=== PATIENT | female | born 1945 | race Caucasian/White ===

== ENCOUNTER 2024-11-07 14:15 | Observation (INO) | payer MEDICARE ==
[2024-11-07 14:55] LABS: Basophils % (A) 0 %; Eosinophils # (A) 0.2 k/uL (0-0.7); Eosinophils % (A) 1 %; HCT 42.1 % (34.0-46.0); HGB 13.7 gm/dL (11.4-16.0); Lymphocytes # (A) 0.9 k/uL (1.0-4.8); Lymphocytes % (A) 6 %; MCHC 32.6 g/dL (31.0-37.0); MCV 101.1 fL (80.0-100.0); Mean Platelet Volume 7.5; Monocytes # (A) 0.8 k/uL (0-1.0); Monocytes % (A) 6 %; Neutrophils # (A) 12.2 k/uL (1.3-7.7); Neutrophils % (A) 86 %; Platelet Count 299 k/uL (150-450); RBC 4.17 m/uL (3.80-5.40); RDW 13.2 % (11.5-15.5); WBC 14.2 k/uL (3.8-10.6)
[2024-11-07 14:58] LABS: Glucose,Whole Blood 79 mg/dL (70-110)
[2024-11-07 15:13] LABS: ALT 14 U/L (4-34); AST 22 U/L (14-36); African American GFR (CKD) >90 (>60 ml/min/1.73 sqM); Albumin 3.9 g/dL (3.5-5.0); Alkaline Phosphatase 166 U/L (38-126); Anion Gap 2 mmol/L; Blood Urea Nitrogen 16 mg/dL (7-17); Calcium 8.8 mg/dL (8.4-10.2); Carbon Dioxide 26 mmol/L (22-30); Chloride 108 mmol/L (98-107); Glucose 100 mg/dL (74-99); Non-African American GFR(CKD) 86 (>60 ml/min/1.73 sqM); Potassium 3.4 mmol/L (3.5-5.1); Sodium 136 mmol/L (137-145); Total Bilirubin 1.3 mg/dL (0.2-1.3); Total Protein 6.3 g/dL (6.3-8.2)
[2024-11-07 15:25] LABS: Amphetamine Screen,Urine Not Detected (NotDetected); Barbiturate Screen,Urine Not Detected (NotDetected); Benzodiazepines Screen,Urine Not Detected (NotDetected); Cocaine Screen,Urine Not Detected (NotDetected); Methadone Screen, Urine Not Detected (NotDetected); Opiate Screen,Urine Not Detected (NotDetected); Oxycodone Screen, Urine Not Detected (NotDetected); Phencyclidine Screen,Urine Not Detected (NotDetected); Tricyclic Antidepressant,Urine Not Detected (NotDetected); Urn Cannabinoid Scrn Not Detected (NotDetected)
[2024-11-07 15:30] LABS: Appearance,Urine Cloudy (Clear); Bacteria,Urine Rare /hpf; Bilirubin,Urine Negative (Negative); Blood,Urine Negative (Negative); Color,Urine Colorless; Glucose,Urine (UA) Negative (Negative); Ketones,Urine Negative (Negative); Leukocyte Esterase,Urine Large (Negative); Mucus,Urine Rare /hpf; Nitrite,Urine Negative (Negative); Protein,Urine Negative (Negative); RBC,Urine 17 /hpf (0-5); Specific Gravity,Urine 1.011 (1.001-1.035); Squamous Epithelial Cell,Urine 21 /hpf (0-4); Urobilinogen,Urine <2.0 mg/dL (<2.0); WBC,Urine 33 /hpf (0-5)
--- NOTE | 2024-11-07 16:01 | XR ---
EXAMINATION TYPE: XR pelvis AP view DATE OF EXAM: 11/07/2024 3:55 PM COMPARISON: None CLINICAL INDICATION: Female, 79 years old with history of Fall; [facility] TECHNIQUE: XR pelvis AP view, examined in a single projection. FINDINGS/IMPRESSION: 1. Right superior and inferior pubic ramus fracture. The femur appears intact. 2. Multilevel degeneration changes spine. The left hip is intact. The remainder of the pelvis appear s intact on radiography. [facility], Workstation: [facility], 11/07/2024 3:59 PM
--- NOTE | 2024-11-07 16:03 | XR ---
EXAMINATION TYPE: XR chest 2V DATE OF EXAM: 11/07/2024 3:55 PM COMPARISON: Chest radiographs from 11/07/2024 CLINICAL INDICATION: Female, 79 years old with history of altered mental status; [facility] TECHNIQUE: XR chest 2V Frontal and lateral views of the chest. FINDINGS: Lungs/Pleura: There is no evidence of pleural effusion, focal consolidation, or pneumothorax. Pulmonary vascularity: Unremarkable. Heart/mediastinum: Cardiomediastinal silhouette is unremarkable. Musculoskeletal: No acute osseous pathology. IMPRESSION: 1. No acute cardiopulmonary disease process. 2. COPD changes. [facility], Workstation: [facility], 11/07/2024 4:01 PM
[2024-11-07] MEDS: SODIUM CHLORIDE 0.9% 500 ML 500 ML IV ONE (16:05)
--- NOTE | 2024-11-07 16:10 | ED ---
General Adult HPI - General Chief complaint: Fall Stated complaint: Fall,hypertension Time Seen by Provider: 11/07/24 14:20 Source: patient, RN notes reviewed, old records reviewed, Caregiver Mode of arrival: EMS - History of Present Illness Initial comments: This is a 79-year-old female who lives alone and has dementia. Patient was found down by the neighbor and the patient states she knows she fell but she did not complain of any symptoms to me however she did complain earlier of some hip pain. Patient denies hitting her head there was no signs of trauma. Patient denies any neck pain. Patient has numbness weakness. Patient denies chest pain or back pain. Patient denies abdominal pain. Patient is unable to give any further history however no one is here to give any further history at this point in time. The next door neighbor eventually showed up and stated that the patient was altered mentally and she did complain of some right hip pain. - Related Data Home Medications Medication Instructions Recorded Confirmed Aspirin EC [Ecotrin Low Dose] 81 mg PO DAILY 11/07/24 11/07/24 Prevagen 1 tab PO DAILY 11/07/24 11/07/24 Allergies Allergy/AdvReac Type Severity Reaction Status Date / Time No Known Allergies Allergy Verified 11/07/24 18:32 Review of Systems ROS Statement: Those systems with pertinent positive or pertinent negative responses have been documented in the HPI. ROS Other: All systems not noted in ROS Statement are negative. Past Medical History Past Medical History: No Reported History Additional Past Medical History / Comment(s): heart murmur History of Any Multi-Drug Resistant Organisms: None Reported Additional Past Surgical History / Comment(s): exploratory abd sx Past Psychological History: No Psychological Hx Reported Smoking Status: Never smoker Past Alcohol Use History: None Reported Past Drug Use History: None Reported General Exam - General Exam Comments Initial Comments: GENERAL: Patient is well-developed and well-nourished. Patient is nontoxic and well- hydrated and is in no acute distress. ENT: Neck is soft and supple. No significant lymphadenopathy is noted. Oropharynx is clear. Moist mucous membranes. Neck has full range of motion without eliciting any pain. EYES: The sclera were anicteric and conjunctiva were pink and moist. Extraocular movements were intact and pupils were equal round and reactive to light. Eyelids were unremarkable. PULMONARY: Unlabored respirations. Good breath sounds bilaterally. No audible rales rhonchi or wheezing was noted. CARDIOVASCULAR: There is a regular rate and rhythm without any murmurs gallops or rubs. ABDOMEN: Soft and nontender with normal bowel sounds. SKIN: Skin is clear with no lesions or rashes and otherwise unremarkable. NEUROLOGIC: Patient is alert and oriented x 2. Cranial nerves II through XII are grossly intact. Motor and sensory are also intact. Normal speech, volume and content. Symmetrical smile. MUSCULOSKELETAL: Normal extremities with adequate strength and full range of motion. Patient has full range of motion of both hips and no point tenderness I palpated the spine and there was no tenderness LYMPHATICS: No significant lymphadenopathy is noted PSYCHIATRIC: Normal psychiatric evaluation. Course Vital Signs 11/07/24 11/07/24 11/07/24 14:15 16:27 18:35 Temperature 98.5 F Pulse Rate 91 113 H 96 Respiratory 18 18 18 Rate Blood Pressure 177/100 151/131 190/90 O2 Sat by Pulse 100 98 Oximetry 11/07/24 20:00 Temperature 98.1 F Pulse Rate 68 Respiratory 18 Rate Blood Pressure 150/84 O2 Sat by Pulse 98 Oximetry Medical Decision Making - Medical Decision Making EKG is interpreted by myself. EKG shows atrial fibrillation at 92 bpm QRS is 1 02 QT interval 3-5 QTc is 434. Patient's EKG shows no ST segment elevation Was pt. sent in by a medical professional or institution ([facility], [employer], urgent care, hospital, or retirement...) When possible be specific @ -No Did you speak to anyone other than the patient for history (EMS, parent, family, police, friend...)? What history was obtained from this source @ -No Did you review nursing and triage notes (agree or disagree)? Why? @ -I reviewed and agree with nursing and triage notes Were old charts reviewed (outside hosp., previous admission, EMS record, old EKG, old radiological studies, urgent care reports/EKG's, retirement records)? Report findings @ -No old charts were reviewed Differential Diagnosis? @ -Differential Altered Mental Status: Hypoglycemia, DKA, hypercapnia, ETOH, overdose, CO poisoning, trauma, myxedema coma, HTN encephalopathy, infection, encephalitis, psychosis, intercranial hemorrhage, hepatic encephalopathy, meningitis, CVA, this is not meant to be an all-inclusive list EKG interpreted by me (3pts min.). @ -As above X-rays interpreted by me (1pt min.). @ -X-ray of the pelvis shows a superior and inferior rami fracture with slight displacement CT interpreted by me (1pt min.). @ -CT of the brain and C-spine showed no acute abnormality. U/S interpreted by me (1pt. min.). @ -None done What testing was considered but not performed or refused? (CT, X-rays, U/S, labs)? Why? @ -None What meds were considered but not given or refused? Why? @ -None Did you discuss the management of the patient with other professionals (professionals i.e. , PA, [employer], lab, RT, psych nurse, sexual assault social worker, hi ranger operator, teacher, guest relation officer, clinical case manager)? Give summary @ -I spoke with Dr. Weldon and he agreed to admit the patient admit the patient wrote admitting orders Was smoking cessation discussed for >3mins.? @ -No Was critical care preformed (if so, how long)? @ -No Were there social determinants of health that impacted care today? How? (Homelessness, low income, unemployed, alcoholism, drug addiction, transportation, low edu. Level, literacy, decrease access to med. care, fdc, rehab)? @ -No Was there de-escalation of care discussed even if they declined (Discuss DNR or withdrawal of care, Hospice)? DNR status @ -No What co-morbidities impacted this encounter? (DM, HTN, Smoking, COPD, CAD, Cancer, CVA, ARF, Chemo, Hep., AIDS, mental health diagnosis, sleep apnea, morbid obesity)? @ -None Was patient admitted / discharged? Hospital course, mention meds given and route, prescriptions, significant lab abnormalities, going to OR and other pertinent info. @ -Patient has a rami fracture but she remains altered per the neighbor so patient will be admitted 23 hours to sound physicians Undiagnosed new problem with uncertain prognosis? @ -No Drug Therapy requiring intensive monitoring for toxicity (Heparin, Nitro, Insulin, Cardizem)? @ -No Were any procedures done? @ -No Diagnosis/symptom? @ -Altered mental status Acute, or Chronic, or Acute on Chronic? @ -Acute Uncomplicated (without systemic symptoms) or Complicated (systemic symptoms)? @ -Complicated Side effects of treatment? @ -No Exacerbation, Progression, or Severe Exacerbation? @ -No Poses a threat to life or bodily function? How? (Chest pain, [place], [place], pneumonia, PE, COPD, DKA, ARF, appy, cholecystitis, CVA, Diverticulitis, Homicidal, Suicidal, threat to staff... and all critical care pts) @ -No Diagnosis/symptom? @ -Rami fractures Acute, or Chronic, or Acute on Chronic? @ -Default Uncomplicated (without systemic symptoms) or Complicated (systemic symptoms)? @ -Acute uncomplicated Side effects of treatment? @ -None Exacerbation, Progression, or Severe Exacerbation] @ -No Poses a threat to life or bodily function? @ -No - Lab Data Result diagrams: 11/07/24 14:21 11/07/24 14:21 Lab Results 11/07/24 11/07/24 11/07/24 Range/Units 14:21 14:21 14:21 WBC 14.2 H (3.8-10.6) k/uL RBC 4.17 (3.80-5.40) m/uL Hgb 13.7 (11.4-16.0) gm/dL Hct 42.1 (34.0-46.0) % MCV 101.1 H (80.0-100.0) fL MCH 33.0 (25.0-35.0) pg MCHC 32.6 (31.0-37.0) g/dL RDW 13.2 (11.5-15.5) % Plt Count 299 (150-450) k/uL MPV 7.5 Neutrophils % 86 % Lymphocytes % 6 % Monocytes % 6 % Eosinophils % 1 % Basophils % 0 % Neutrophils # 12.2 H (1.3-7.7) k/uL Lymphocytes # 0.9 L (1.0-4.8) k/uL Monocytes # 0.8 (0-1.0) k/uL Eosinophils # 0.2 (0-0.7) k/uL Basophils # 0.0 (0-0.2) k/uL PT (10.0-12.5) sec INR (<1.2) APTT (22.0-30.0) sec Sodium 136 L (137-145) mmol/L Potassium 3.4 L (3.5-5.1) mmol/L Chloride 108 H (98-107) mmol/L Carbon Dioxide 26 (22-30) mmol/L Anion Gap 2 mmol/L BUN 16 (7-17) mg/dL Creatinine 0.66 (0.52-1.04) mg/dL Est GFR (CKD-EPI)AfAm >90 (>60 ml/min/1.73 sqM) Est GFR (CKD-EPI)NonAf 86 (>60 ml/min/1.73 sqM) Glucose 100 H (74-99) mg/dL POC Glucose (mg/dL) (70-110) mg/dL POC Glu [employer] ID Calcium 8.8 (8.4-10.2) mg/dL Total Bilirubin 1.3 (0.2-1.3) mg/dL AST 22 (14-36) U/L ALT 14 (4-34) U/L Alkaline Phosphatase 166 H (38-126) U/L Troponin I 0.015 (0.000-0.034) ng/mL Total Protein 6.3 (6.3-8.2) g/dL Albumin 3.9 (3.5-5.0) g/dL Urine Color Urine Appearance (Clear) Urine pH (5.0-8.0) Ur Specific [place] (1.001-1.035) Urine Protein (Negative) Urine Glucose (UA) (Negative) Urine Ketones (Negative) Urine Blood (Negative) Urine Nitrite (Negative) Urine Bilirubin (Negative) Urine Urobilinogen (<2.0) mg/dL Ur Leukocyte Esterase (Negative) Urine RBC (0-5) /hpf Urine WBC (0-5) /hpf Urine WBC Clumps (None) /hpf Ur Squamous Epith Cells (0-4) /hpf Urine Bacteria (None) /hpf Urine Mucus (None) /hpf Urine Opiates Screen (NotDetected) Ur Oxycodone Screen (NotDetected) Urine Methadone Screen (NotDetected) Ur Barbiturates Screen (NotDetected) U Tricyclic Antidepress (NotDetected) Ur Phencyclidine Scrn (NotDetected) Ur Amphetamines Screen (NotDetected) U Methamphetamines Scrn (NotDetected) U Benzodiazepines Scrn (NotDetected) Urine Cocaine Screen (NotDetected) U Marijuana (THC) Screen (NotDetected) 11/07/24 11/07/24 11/07/24 Range/Units 14:55 14:56 16:09 WBC (3.8-10.6) k/uL RBC (3.80-5.40) m/uL Hgb (11.4-16.0) gm/dL Hct (34.0-46.0) % MCV (80.0-100.0) fL MCH (25.0-35.0) pg MCHC (31.0-37.0) g/dL RDW (11.5-15.5) % Plt Count (150-450) k/uL MPV Neutrophils % % Lymphocytes % % Monocytes % % Eosinophils % % Basophils % % Neutrophils # (1.3-7.7) k/uL Lymphocytes # (1.0-4.8) k/uL Monocytes # (0-1.0) k/uL Eosinophils # (0-0.7) k/uL Basophils # (0-0.2) k/uL PT 10.5 (10.0-12.5) sec INR 0.9 (<1.2) APTT 21.9 L (22.0-30.0) sec Sodium (137-145) mmol/L Potassium (3.5-5.1) mmol/L Chloride (98-107) mmol/L Carbon Dioxide (22-30) mmol/L Anion Gap mmol/L BUN (7-17) mg/dL Creatinine (0.52-1.04) mg/dL Est GFR (CKD-EPI)AfAm (>60 ml/min/1.73 sqM) Est GFR (CKD-EPI)NonAf (>60 ml/min/1.73 sqM) Glucose (74-99) mg/dL POC Glucose (mg/dL) 79 (70-110) mg/dL POC Glu [employer] Operator ID Ybarra Florin Calcium (8.4-10.2) mg/dL Total Bilirubin (0.2-1.3) mg/dL AST (14-36) U/L ALT (4-34) U/L Alkaline Phosphatase (38-126) U/L Troponin I (0.000-0.034) ng/mL Total Protein (6.3-8.2) g/dL Albumin (3.5-5.0) g/dL Urine Color Colorless Urine Appearance Cloudy H (Clear) Urine pH 7.0 (5.0-8.0) Ur Specific [place] 1.011 (1.001-1.035) Urine Protein Negative (Negative) Urine Glucose (UA) Negative (Negative) Urine Ketones Negative (Negative) Urine Blood Negative (Negative) Urine Nitrite Negative (Negative) Urine Bilirubin Negative (Negative) Urine Urobilinogen <2.0 (<2.0) mg/dL Ur Leukocyte Esterase Large H (Negative) Urine RBC 17 H (0-5) /hpf Urine WBC 33 H (0-5) /hpf Urine WBC Clumps Few H (None) /hpf Ur Squamous Epith Cells 21 H (0-4) /hpf Urine Bacteria Rare H (None) /hpf Urine Mucus Rare H (None) /hpf Urine Opiates Screen Not Detected (NotDetected) Ur Oxycodone Screen Not Detected (NotDetected) Urine Methadone Screen Not Detected (NotDetected) Ur Barbiturates Screen Not Detected (NotDetected) U Tricyclic Antidepress Not Detected (NotDetected) Ur Phencyclidine Scrn Not Detected (NotDetected) Ur Amphetamines Screen Not Detected (NotDetected) U Methamphetamines Scrn Not Detected (NotDetected) U Benzodiazepines Scrn Not Detected (NotDetected) Urine Cocaine Screen Not Detected (NotDetected) U Marijuana (THC) Screen Not Detected (NotDetected) Disposition Clinical Impression: Fall, Pubic ramus fracture, Altered mental status, New onset a-fib Disposition: ADMITTED IP TO THIS [facility] Time of Disposition: 17:49
--- NOTE | 2024-11-07 16:11 | CT ---
EXAMINATION TYPE: CT brain cspine wo con DATE OF EXAM: 11/07/2024 4:03 PM COMPARISON: None. CLINICAL INDICATION: Female, 79 years old with history of Trauma; FELL/CONFUSED pain TECHNIQUE: Brain: Multiple axial CT images of the brain were obtained without IV contrast. Cspine: Axial CT images from the skull base to the inferior aspect of T2 we obtained without intraven ous contrast. Coronal and sagittal reformatted images were also reviewed. . CT DLP: 1167.2 mGycm, Automated exposure control for dose reduction was used. FINDINGS: Brain: Extra-axial spaces: No abnormal extra-axial fluid collections. Ventricular system: Dilatation in proportion to cerebral atrophy. Cerebral parenchyma: Cerebral atrophy. No acute intraparenchymal hemorrhage or mass effect. The hare -white junction is well differentiated. Scattered hypoattenuating areas are seen within the white mat ter. Cerebellum: Unremarkable. Mass effect: No evidence of midline shift. Intracranial vasculature: unremarkable Soft tissues: Normal. Calvarium/osseous structures: No depressed skull fracture. Paranasal sinuses and mastoid air cells: Clear. Visualized orbits: Bilateral aphakia Cervical spine: Fracture: None. Osseous structures: Multilevel degenerative disc disease changes with endplate spurring and disc oste ophyte complex's. Vertebral alignment: Within normal limits. Spinal canal/Neural Foramina: No evidence of significant spinal canal narrowing. No evidence for sign ificant neural foraminal stenosis. Neck soft tissues: Prevertebral soft tissues are within normal limits. Other: The airway is patent. The lung apices are clear. Atherosclerosis of the carotid bifurcations. IMPRESSION: 1. No acute intracranial process. 2. Nonspecific white matter changes, likely secondary to chronic small vessel ischemic disease. 3. No evidence of cervical spine fracture. 4. Moderate multilevel degenerative disc disease. [facility], Workstation: [facility], 11/07/2024 4:09 PM
[2024-11-07 16:39] LABS: INR 0.9 (<1.2); Partial Thromboplastin Time 21.9 sec (22.0-30.0); Prothrombin Time 10.5 sec (10.0-12.5)
[2024-11-07] MEDS: KETOROLAC 15 MG/ML 1 ML VIAL IVP STA (18:41)
[2024-11-07] MEDS: SODIUM CHLORIDE 0.9% 1,000 ML IV ONE (18:42)
[2024-11-07] MEDS: LABETALOL SYRINGE 5 MG/ML (4 ML SYR) IVP STA (18:42)
[2024-11-07] MEDS: POTASSIUM CHLORIDE 20 MEQ in WATER FOR INJECTION 1 100ML.BAG IVPB STA (22:08)
[2024-11-07] MEDS: POTASSIUM CHLORIDE ER 20 MEQ TAB.ER PO STA (22:20)
[2024-11-07] MEDS: hydrALAZINE HCL 20 MG/ML 1 ML VIAL IVP STA (23:32)
--- NOTE | 2024-11-08 00:24 | P.HPIM ---
History of Present Illness H&P Date: 11/07/24 Chief Complaint: Altered mental status Patient is a 79 year old female with no significant past medical history presented to the ED with altered mental status after a fall. She reports having a mechanical fall 2 weeks ago while getting groceries in her house. She didn't hit her head or lose consciousness. But she didn't get a medical evaluation at the time. Since then she has been able to ambulate with a walker. Yesterday she sustained another fall. She was found by her family on the floor. The patient didn't remember how she fell or if she hit her head or lost consciousness. Since the fall she has been complaining of bilateral hip pain. Family reports that the patient became very agitated and had altered mentation. Which is when she was brought into the ED. Upon presentation to the ED she wasn't oriented to person, place or time. At the time of this interview, her mentation had improved but is still agitated. She also reports slurring of speech. Denies headache, vision changes. She denies history of multiple falls. Denies having arrhythmias or past medical history of CVA/TIA. 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 She states her blood pressure is elevated sometimes but denies taking any antihypertensives. Denies fever, chills, chest pain, shortness of breath, cough, palpitations, abdominal pain, nausea, vomiting, hematuria, dysuria, hematochezia, melena, headache, vision changes, numbness, tingling. ED documentation reviewed. In the ED patient was treated with ketorolac 15 mg, labetalol 20 mg, 0.9 normal saline. Vitals on admission T 98.5 F, AK 91 bpm, RR 18, BP 177/100, O2 sat 100% on room air EKG independently interpreted as atrial fibrillation, poor R wave progression, rate 92 bpm, QTc 434 ms Chest x-ray shows no acute cardiopulmonary disease/process. COPD changes. Pelvis x-ray shows right superior and inferior pubic ramus fracture with femur appearing intact, multilevel degeneration changes of spine with the left hip intact and remainder of pelvis appears intact on radiography Head/cervical spine CT shows no acute intracranial process, nonspecific white matter changes likely secondary to chronic small vessel ischemic disease, no evidence of cervical spine fracture, moderate multilevel degenerative disc disease Labs on admission show WBC 14.2, sodium 136, potassium 3.4, ALP 166, APTT 21.9, troponin I 0.015 UA shows cloudy appearance, large leukocyte esterase, 17 RBC, 33 WBC, few WBC clumps, 21 squamous epithelial cells, rare bacteria and mucus Urine toxicology is negative Review of systems: Pertinent positives and negatives as discussed in HPI, a complete review of systems was performed and all other systems are negative. Social history: Tobacco: Current everyday smoker Alcohol: Occasional Recreational drugs: Denies use Physical examination: Vital signs reviewed General: nontoxic, no distress, appears at stated age, underweight Derm: warm, dry, intact Head: atraumatic, normocephalic, symmetric Eyes: EOMI, anicteric sclera Mouth: no lip lesion, mucus membranes moist Cardiovascular: S1 S2 reg, no murmur Lungs: CTA bilateral, no rhonchi, no rales, no accessory muscle use Abdominal: soft, non-tender to palpation Extremities: No cyanosis, clubbing, or pedal edema. B/l hip tender to palpation Neuro: Alert, Oriented, strength 5/5 of b/l UE, 5/5 of b/l LE distally, limited proximally due to pain from the fracture Psych: agitated Assessment/Plan: Patient is a 79 year old female with no significant past medical history presented to the ED with altered mental status after a fall. She has been admitted for right superior and inferior pubic ramus fracture. Active: #. Altered mental status, possibly secondary to concussion due to fall vs TIA, improving Head/cervical spine CT shows no acute intracranial process, nonspecific white matter changes likely secondary to chronic small vessel ischemic disease, no evidence of cervical spine fracture, moderate multilevel degenerative disc disease Urine toxicology is negative UA shows cloudy appearance, large leukocyte esterase, 17 RBC, 33 WBC, few WBC clumps, 21 squamous epithelial cells, rare bacteria and mucus Urine culture is pending Consult [employer]NAG[employer] #. Pelvic fracture, secondary to fall from standing height Pelvis x-ray shows right superior and inferior pubic ramus fracture with femur appearing intact, multilevel degeneration changes of spine with the left hip intact and remainder of pelvis appears intact on radiography Continue Ketorolac 15 mg IVP Q6HR PRN for pain management Obtain DEXA scan Calcium and Vitamin D supplementation Fall precautions Consult orthopedic surgery Consult PT and OT #. Atrial fibrillation, controlled ventricular rate, new onset Obtain echocardiogram Obtain TSH, lipid panel, A1c Consult cardiology #. Hypertension S/p Labetalol 20 mg and Hydralazine 10 mg in the ED Hydralazine 10 mg IVP Q6HR PRN for elevated blood pressure #. Hypokalemia Potassium chloride 20 meq IVPB once Monitor BMP #. Elevated alkaline phosphatase, secondary to fracture Monitor CMP F: 0.9 normal saline at 50 ml/hr E: Potassium replacement N: Regular diet A: DVT prophylaxis: Lovenox 40 mg SQ daily GI prophylaxis: Pantoprazole 40 mg IVP daily The patient is admitted with an anticipated less than 2 midnight stay for evaluation of altered mental status CODE STATUS: FULL CODE Discussed with: Patient and family Anticipated discharge place: Home Past Medical History Past Medical History: No Reported History Additional Past Medical History / Comment(s): heart murmur History of Any Multi-Drug Resistant Organisms: None Reported Additional Past Surgical History / Comment(s): exploratory abd sx Past Psychological History: No Psychological Hx Reported Smoking Status: Never smoker Past Alcohol Use History: None Reported Past Drug Use History: None Reported Medications and Allergies Home Medications Medication Instructions Recorded Confirmed Type Aspirin EC [Ecotrin Low Dose] 81 mg PO DAILY 11/07/24 11/07/24 History Prevagen 1 tab PO DAILY 11/07/24 11/07/24 History Allergies Allergy/AdvReac Type Severity Reaction Status Date / Time No Known Allergies Allergy Verified 11/07/24 18:32 Physical Exam Vitals: Vital Signs Temp Pulse Resp BP Pulse Ox 11/07/24 18:35 96 18 190/90 98 11/07/24 16:27 113 H 18 151/131 100 11/07/24 14:15 98.5 F 91 18 177/100 Intake and Output 11/07/24 11/07/24 11/07/24 06:59 14:59 22:59 Other: Weight 54.885 kg Results CBC & Chem 7: 11/07/24 14:21 11/07/24 14:21 Labs: Abnormal Lab Results - Last 24 Hours (Table) 11/07/24 11/07/24 11/07/24 Range/Units 14:21 14:21 14:55 WBC 14.2 H (3.8-10.6) k/uL MCV 101.1 H (80.0-100.0) fL Neutrophils # 12.2 H (1.3-7.7) k/uL Lymphocytes # 0.9 L (1.0-4.8) k/uL APTT (22.0-30.0) sec Sodium 136 L (137-145) mmol/L Potassium 3.4 L (3.5-5.1) mmol/L Chloride 108 H (98-107) mmol/L Glucose 100 H (74-99) mg/dL Alkaline Phosphatase 166 H (38-126) U/L Urine Appearance Cloudy H (Clear) Ur Leukocyte Esterase Large H (Negative) Urine RBC 17 H (0-5) /hpf Urine WBC 33 H (0-5) /hpf Urine WBC Clumps Few H (None) /hpf Ur Squamous Epith Cells 21 H (0-4) /hpf Urine Bacteria Rare H (None) /hpf Urine Mucus Rare H (None) /hpf 11/07/24 Range/Units 16:09 WBC (3.8-10.6) k/uL MCV (80.0-100.0) fL Neutrophils # (1.3-7.7) k/uL Lymphocytes # (1.0-4.8) k/uL APTT 21.9 L (22.0-30.0) sec Sodium (137-145) mmol/L Potassium (3.5-5.1) mmol/L Chloride (98-107) mmol/L Glucose (74-99) mg/dL Alkaline Phosphatase (38-126) U/L Urine Appearance (Clear) Ur Leukocyte Esterase (Negative) Urine RBC (0-5) /hpf Urine WBC (0-5) /hpf Urine WBC Clumps (None) /hpf Ur Squamous Epith Cells (0-4) /hpf Urine Bacteria (None) /hpf Urine Mucus (None) /hpf
[2024-11-08] MEDS: KETOROLAC 15 MG/ML 1 ML VIAL IVP SCH (00:26)
[2024-11-08] MEDS ORDERED: hydrALAZINE HCL 20 MG/ML 1 ML VIAL IVP PRN (01:07)
[2024-11-08 03:57] LABS: Chol/HDL Ratio 2.27 Ratio; LDL Cholesterol,Calculated 79.1 mg/dL (0.0-131.0); VLDL Calculation 11.62 mg/dL (5.00-40.00)
[2024-11-08 07:38] LABS: HCT 40.5 % (34.0-46.0); HGB 13.2 gm/dL (11.4-16.0); MCH 33.5 pg (25.0-35.0); MCHC 32.6 g/dL (31.0-37.0); Macrocytosis Slight; Mean Platelet Volume 7.7; Platelet Count 288 k/uL (150-450); RBC 3.93 m/uL (3.80-5.40); RDW 13.1 % (11.5-15.5); WBC 8.6 k/uL (3.8-10.6)
[2024-11-08] MEDS: CALCIUM CARB-VIT D 500 MG-5 MCG TAB PO SCH (07:46)
[2024-11-08 08:05] LABS: ALT 12 U/L (4-34); AST 23 U/L (14-36); African American GFR (CKD) >90 (>60 ml/min/1.73 sqM); Albumin 3.5 g/dL (3.5-5.0); Alkaline Phosphatase 143 U/L (38-126); Anion Gap 3 mmol/L; Blood Urea Nitrogen 15 mg/dL (7-17); Carbon Dioxide 30 mmol/L (22-30); Chloride 104 mmol/L (98-107); Glucose 93 mg/dL (74-99); Non-African American GFR(CKD) 85 (>60 ml/min/1.73 sqM); Potassium 4.6 mmol/L (3.5-5.1); Sodium 137 mmol/L (137-145); Total Bilirubin 1.1 mg/dL (0.2-1.3); Total Protein 5.8 g/dL (6.3-8.2)
[2024-11-08] MEDS: VALSARTAN 80 MG TAB PO SCH (08:50)
[2024-11-08] MEDS: PANTOPRAZOLE 40 MG/10 ML VIAL IVP SCH (08:50)
[2024-11-08] MEDS: APIXABAN 5 MG TAB PO SCH (08:50)
[2024-11-08] MEDS ORDERED: amLODIPine 10 MG TAB PO SCH (09:00)
[2024-11-08] MEDS ORDERED: ENOXAPARIN 40 MG/0.4 ML SYRINGE SQ SCH (09:00)
--- NOTE | 2024-11-08 09:05 | P.CRDCN ---
History of Present Illness History of present illness: HISTORY OF PRESENT ILLNESS: This is a 79-year-old female with no significant past medical history. 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 We have been asked to see the patient in co nsultation for new onset atrial fibrillation. Patient examined at the bedside in the emergency room. Patients family member is at the bedside. Patient apparently had a fall about 2 weeks. It is unknown if this was a mechanical fall or a syncopal episode. Apparently patient's friend came to check on her yesterday and she was found on the floor. She was conscious at the time but unknown for how long she laid on the floor. Apparently she has been having some issues with her balance recently per the family member. He also reports that she has had some issues with her speech at baseline and finding the right words but is not confused at baseline. The patient was found to be in A-fib with controlled ventricular rates. The patient denies a known history of atrial fibrillation. Additionally patient's blood pressures were found to be elevated with systolics between [id number]. DIAGNOSTICS: - EKG reveals atrial fibrillation with controlled ventricular rate - Chest xray negative for acute process. COPD changes. - Pelvis x-ray right superior and inferior pubic ramus fracture. Femur appears intact. - Laboratory data: WBC 14.2. Hemoglobin 13.7. Platelet count 299. Sodium 136. Potassium 3.4. BUN 16. Creatinine 0.66. Troponin negative x 1. TSH 2.710 - Current home cardiac medications include aspirin 81 mg daily - No previous echocardiogram, stress test, or cardiac catheterization available in EMR for review REVIEW OF SYSTEMS: At the time of my exam: CONSTITUTIONAL: Denies fever or chills. HEENT: Denies blurred vision, vision changes, or eye pain. Denies hemoptysis CARDIOVASCULAR: Denies chest pain. Denies orthopnea. Denies PND. Denies palpitations RESPIRATORY: Denies shortness of breath. GASTROINTESTINAL: Denies abdominal pain. Denies nausea or vomiting. HEMATOLOGIC: Denies bleeding disorders. GENITOURINARY: Denies any blood in urine. SKIN: Denies pruitis. Denies rash. PHYSICAL EXAM: VITAL SIGNS: Reviewed. GENERAL: Well-developed in no acute distress. HEENT: Head is normocephalic. Pupils are equal, round. Sclerae anicteric. Mucous membranes of the mouth are moist. Neck supple. No JVD or thyromegaly LUNGS: Respirations even and unlabored. Lungs essentially clear to auscultation bilaterally. HEART: Irregular rate and rhythm. S1 and S2 heard. ABDOMEN: Soft. Nondistended. Nontender. EXTREMITIES: Normal range of motion. No clubbing or cyanosis. Peripheral pulses intact. No lower extremity edema NEUROLOGIC: Awake and alert. ASSESSMENT: Status post fall x 2 Right superior and inferior pubic ramus fracture Atrial fibrillation with controlled ventricular rate, duration unknown Hypertensive urgency Altered mental status PLAN: Obtain 2D echo to assess cardiac structure and function TSH checked and within normal limits Begin Eliquis 5 mg twice a day Begin valsartan 80 mg twice a day for optimal blood pressure control Discontinue PRN IVP antihypertensive medications as this makes it difficult to determine appropriate oral regimen Obtain creatinine kinase level Further recommendations pending patient course Nurse practitioner note has been reviewed by physician. Signing provider agrees with the documented findings, assessment, and plan of care documented by DATA LIBRARIAN as a scribe. Past Medical History Past Medical History: No Reported History Additional Past Medical History / Comment(s): heart murmur History of Any Multi-Drug Resistant Organisms: None Reported Additional Past Surgical History / Comment(s): exploratory abd sx Past Psychological History: No Psychological Hx Reported Smoking Status: Never smoker Past Alcohol Use History: None Reported Past Drug Use History: None Reported Medications and Allergies Home Medications Medication Instructions Recorded Confirmed Type Aspirin EC [Ecotrin Low Dose] 81 mg PO DAILY 11/07/24 11/07/24 History Prevagen 1 tab PO DAILY 11/07/24 11/07/24 History Allergies Allergy/AdvReac Type Severity Reaction Status Date / Time No Known Allergies Allergy Verified 11/07/24 18:32 Physical Exam Vitals: Vital Signs Temp Pulse Resp BP Pulse Ox 11/08/24 05:17 98 F 71 16 178/88 100 11/08/24 02:00 76 18 148/99 98 11/08/24 00:00 84 18 139/94 97 11/07/24 22:00 65 18 160/88 97 11/07/24 20:00 98.1 F 68 18 150/84 98 11/07/24 18:35 96 18 190/90 98 11/07/24 16:27 113 H 18 151/131 100 11/07/24 14:15 98.5 F 91 18 177/100 Results 11/08/24 06:32 11/08/24 06:32 Cardiac Enzymes 11/07/24 11/07/24 Range/Units 14:21 14:21 AST 22 (14-36) U/L Troponin I 0.015 (0.000-0.034) ng/mL Coagulation 11/07/24 Range/Units 16:09 PT 10.5 (10.0-12.5) sec APTT 21.9 L (22.0-30.0) sec Lipids 11/07/24 Range/Units 14:21 Triglycerides 58.10 (0.00-149.00) mg/dL Cholesterol 162.00 (0.00-200.00) mg/dL HDL Cholesterol 71.30 H (40.00-60.00) mg/dL Cholesterol/HDL Ratio 2.27 Ratio CBC 11/07/24 Range/Units 14:21 WBC 14.2 H (3.8-10.6) k/uL RBC 4.17 (3.80-5.40) m/uL Hgb 13.7 (11.4-16.0) gm/dL Hct 42.1 (34.0-46.0) % Plt Count 299 (150-450) k/uL Comprehensive Metabolic Panel 11/07/24 Range/Units 14:21 Sodium 136 L (137-145) mmol/L Potassium 3.4 L (3.5-5.1) mmol/L Chloride 108 H (98-107) mmol/L Carbon Dioxide 26 (22-30) mmol/L BUN 16 (7-17) mg/dL Creatinine 0.66 (0.52-1.04) mg/dL Glucose 100 H (74-99) mg/dL Calcium 8.8 (8.4-10.2) mg/dL AST 22 (14-36) U/L ALT 14 (4-34) U/L Alkaline Phosphatase 166 H (38-126) U/L Total Protein 6.3 (6.3-8.2) g/dL Albumin 3.9 (3.5-5.0) g/dL Current Medications Generic Name Dose Route Start Last Admin Trade Name Freq PRN Reason Stop Dose Admin Calcium Carbonate 1 each 11/08/24 07:30 Calcium Carb-Vit D 500 Mg-5 Mcg Tab PO BID-W/MEALS MANJIT Enoxaparin Sodium 40 mg 11/08/24 09:00 Enoxaparin 40 Mg/0.4 Ml Syringe SQ DAILY MANJIT Hydralazine HCl 10 mg 11/08/24 01:07 Hydralazine Hcl 20 Mg/Ml 1 Ml Vial IVP Q6HR PRN Blood Pressure - High Sodium Chloride 1,000 mls @ 50 mls/hr 11/07/24 17:49 11/07/24 18:42 Saline 0.9% IV 11/08/24 13:48 50 mls/hr .Q20H ONE Administration Ketorolac Tromethamine 15 mg 11/08/24 00:00 11/08/24 00:26 Ketorolac 15 Mg/Ml 1 Ml Vial IVP 11/13/24 00:00 15 mg Q6HR MANJIT Administration Pantoprazole Sodium 40 mg 11/08/24 09:00 Pantoprazole 40 Mg/10 Ml Vial IVP DAILY MANJIT 11/07/24 14:21 11/07/24 14:21
--- NOTE | 2024-11-08 11:48 | P.PN ---
Subjective Progress Note Date: 11/08/24 Principal diagnosis: acute encephalopathy; right pelvic fracture d/t fall Patient is a 79 year old female with no significant past medical history presented to the ED with altered mental status after a fall. She reports having a mechanical fall 2 weeks ago while getting groceries in her house. She didn't hit her head or lose consciousness. But she didn't get a medical evaluation at the time. Since then she has been able to ambulate with a walker. Yesterday she sustained another fall. She was found by her family on the floor. The patient didn't remember how she fell or if she hit her head or lost consciousness. Since the fall she has been complaining of bilateral hip pain. Family reports that the patient became very agitated and had altered mentation. Which is when she was brought into the ED. Upon presentation to the ED she wasn't oriented to person, place or time. At the time of this interview, her mentation had improved but is still agitated. She also reports slurring of speech. Denies headache, vision changes. She denies history of multiple falls. Denies having arrhythmias or past medical history of CVA/TIA. 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 She states her blood pressure is elevated sometimes but denies taking any antihypertensives. Denies fever, chills, chest pain, shortness of breath, cough, palpitations, abdominal pain, nausea, vomiting, hematuria, dysuria, hematochezia, melena, headache, vision changes, numbness, tingling. 11/08/2024 patient seen and examined at bedside. Patient send mentation is improved per family at bedside. No new complaints. No acute events overnight. WBC 8.6 hemoglobin 13.2 MCV 103 sodium 137 potassium 4.6 bicarb 24 BUN 15 creatinine 0.68 glucose 93 calcium 9 TSH 2.7. Lipid panel shows elevated HDL at 71 LDL 79 cholesterol 162 A1c 5.5 Review of systems: Pertinent positives and negatives as discussed in HPI, a complete review of systems was performed and all other systems are negative. Physical examination: Vital signs reviewed General: nontoxic, no distress, appears at stated age, underweight Derm: warm, dry, intact Head: atraumatic, normocephalic, symmetric Eyes: EOMI, anicteric sclera Mouth: no lip lesion, mucus membranes moist Cardiovascular: S1 S2 reg, no murmur Lungs: CTA bilateral, no rhonchi, no rales, no accessory muscle use Abdominal: soft, non-tender to palpation Extremities: No cyanosis, clubbing, or pedal edema bilateral hip tender to palpation Neuro: Alert and Oriented x 3, strength 5/5 bilateral proximal and distal upper and lower extremities, range of motion limited due to pain from the fracture Psych: appropriate affect and mood Assessment/Plan: Patient is a 79 year old female with hypertension and being evaluated for acute metabolic encephalopathy and right superior and inferior pubic ramus fracture. Active: #. Acute encephalopathy, possibly secondary to concussion due to fall vs TIA vs delirium vs infectious vs metabolic, resolved Head/cervical spine CT shows no acute intracranial process, nonspecific white matter changes likely secondary to chronic small vessel ischemic disease, no evidence of cervical spine fracture, moderate multilevel degenerative disc disease Urine toxicology is negative UA shows cloudy appearance, large leukocyte esterase, 17 RBC, 33 WBC, few WBC clumps, 21 squamous epithelial cells, rare bacteria and mucus Urine culture is pending Consult R[employer] CUP FILLER #. Pelvic fracture, secondary to fall from standing height, suspected osteoporosis #. Elevated alkaline phosphatase, secondary to above Pelvis x-ray shows right superior and inferior pubic ramus fracture with femur appearing intact, multilevel degeneration changes of spine with the left hip intact and remainder of pelvis appears intact on radiography Continue Ketorolac 15 mg IVP Q6HR PRN for pain management Calcium and Vitamin D supplementation ALP 143 today Fall precautions Consult orthopedic surgery Consult PT and OT #. Atrial fibrillation, controlled ventricular rate, new onset Obtain echocardiogram Lipid panel shows elevated HDL at 71 LDL 79 cholesterol 162 A1c 5.5 Cardiology note reviewed, placed on Eliquis 5mg p.o. twice daily #. Hypertension S/p Labetalol 20 mg and Hydralazine 10 mg in the ED Valsartan 80 mg p.o. twice daily #. Hypokalemia, resolved Potassium chloride 20 meq IVPB once Potassium now at 4.6 F: 0.9 normal saline at 50 ml/hr E: Potassium replacement N: Regular diet A: fall precautions DVT prophylaxis: Lovenox 40 mg SQ daily GI prophylaxis: Pantoprazole 40 mg IVP daily Disposition: Pending clinical course I have seen and evaluated the patient today. Discussed with the resident and agree with the residents finding and plan as documented in the resident's note. Changes highlighted in blue font. Objective - Vital Signs Vital signs: Vital Signs Temp 98 F 11/08/24 05:17 Pulse 71 11/08/24 05:17 Resp 16 11/08/24 05:17 BP 178/88 11/08/24 05:17 Pulse Ox 100 11/08/24 05:17 FiO2 Intake & Output 11/07/24 11/08/24 11/08/24 18:59 06:59 18:59 Weight 54.885 kg - Labs CBC & Chem 7: 11/08/24 06:32 11/08/24 06:32 Labs: Abnormal Lab Results - Last 24 Hours (Table) 11/07/24 11/07/24 11/07/24 Range/Units 14:21 14:21 14:21 WBC 14.2 H (3.8-10.6) k/uL MCV 101.1 H (80.0-100.0) fL Neutrophils # 12.2 H (1.3-7.7) k/uL Lymphocytes # 0.9 L (1.0-4.8) k/uL APTT (22.0-30.0) sec Sodium 136 L (137-145) mmol/L Potassium 3.4 L (3.5-5.1) mmol/L Chloride 108 H (98-107) mmol/L Glucose 100 H (74-99) mg/dL Alkaline Phosphatase 166 H (38-126) U/L HDL Cholesterol 71.30 H (40.00-60.00) mg/dL Urine Appearance (Clear) Ur Leukocyte Esterase (Negative) Urine RBC (0-5) /hpf Urine WBC (0-5) /hpf Urine WBC Clumps (None) /hpf Ur Squamous Epith Cells (0-4) /hpf Urine Bacteria (None) /hpf Urine Mucus (None) /hpf 11/07/24 11/07/24 11/08/24 Range/Units 14:55 16:09 06:32 WBC (3.8-10.6) k/uL MCV 103.0 H (80.0-100.0) fL Neutrophils # (1.3-7.7) k/uL Lymphocytes # (1.0-4.8) k/uL APTT 21.9 L (22.0-30.0) sec Sodium (137-145) mmol/L Potassium (3.5-5.1) mmol/L Chloride (98-107) mmol/L Glucose (74-99) mg/dL Alkaline Phosphatase (38-126) U/L HDL Cholesterol (40.00-60.00) mg/dL Urine Appearance Cloudy H (Clear) Ur Leukocyte Esterase Large H (Negative) Urine RBC 17 H (0-5) /hpf Urine WBC 33 H (0-5) /hpf Urine WBC Clumps Few H (None) /hpf Ur Squamous Epith Cells 21 H (0-4) /hpf Urine Bacteria Rare H (None) /hpf Urine Mucus Rare H (None) /hpf
[2024-11-08] MEDS ORDERED: HYDROcodone/APAP 5-325MG 1 EACH TAB PO PRN (17:39)
--- NOTE | 2024-11-08 17:52 | P.CNOR ---
History of Present Illness - [facility] Consult date: 11/08/24 Consult reason: fracture History of present illness: Patient is a pleasant 79 yo female seen at bedside in ED this afternoon. Orthopedics was consulted regarding her right pubic ramii fractures. She lives alone and has dementia. Patient was found down by the neighbor and the patient states she knows she fell. She has had right hip/groin pain and difficulty ambulating. She is denying current numbness or calf pain. She has had difficulty with speech since her last January. She is denying any other complaints Review of Systems All systems: negative Past Medical History Past Medical History: No Reported History Additional Past Medical History / Comment(s): heart murmur History of Any Multi-Drug Resistant Organisms: None Reported Additional Past Surgical History / Comment(s): exploratory abd sx Past Psychological History: No Psychological Hx Reported Smoking Status: Never smoker Past Alcohol Use History: None Reported Past Drug Use History: None Reported Medications and Allergies Home Medications Medication Instructions Recorded Confirmed Type Aspirin EC [Ecotrin Low Dose] 81 mg PO DAILY 11/07/24 11/07/24 History Prevagen 1 tab PO DAILY 11/07/24 11/07/24 History Allergies Allergy/AdvReac Type Severity Reaction Status Date / Time No Known Allergies Allergy Verified 11/07/24 18:32 Physical Examination Inspection of right hip and lower extremity shows no wounds, erythema or echhymoses. There is no deformity. She has minimal to no pain with PROM of the right hip including flexion, IR, ER, Adduction and abduction. The femur, knee and lower leg are nontender and have no pain with ROM. Calf is SNT. Motor and sensation intact throughout right lower extremity. Pulse is 2+ at DP. Less than 2 sec cap refill in all digits Results - Labs Labs: Abnormal Lab Results - Last 24 Hours (Table) 11/07/24 11/08/24 11/08/24 Range/Units 14:21 06:32 06:32 MCV 103.0 H (80.0-100.0) fL Alkaline Phosphatase 143 H (38-126) U/L Total Protein 5.8 L (6.3-8.2) g/dL HDL Cholesterol 71.30 H (40.00-60.00) mg/dL H & H 11/07/24 11/08/24 Range/Units 14:21 06:32 Hgb 13.7 13.2 (11.4-16.0) gm/dL Hct 42.1 40.5 (34.0-46.0) % Coagulation 11/07/24 Range/Units 16:09 INR 0.9 (<1.2) Result Diagrams: 11/08/24 06:32 11/08/24 06:32 - Diagnostic results Hip x-ray: report reviewed, image reviewed (right superior and inferior pubic rami fractures) Assessment and Plan (1) Pubic ramus fracture Narrative/Plan: There are no plans for surgical intervention. Recommend partial weight bearing as tolerated with walker at all times, PT, pain management, and consultation for ECF placement. Will follow. Thank you Current Visit: Yes Status: Acute Priority: Medium Code(s): S32.599A - OTH FRACTURE OF UNSP PUBIS, INIT ENCNTR FOR CLOSED FRACTURE SNOMED Code(s): 5392659400 Time with Patient: Less than 30
[2024-11-08] MEDS: HYDROcodone/APAP 5-325MG 1 EACH TAB PO PRN (18:19)
[2024-11-08] MEDS: hydrOXYzine HCL 25 MG TAB PO PRN (19:01)
[2024-11-08] MEDS: cloNIDine HCL 0.2 MG TAB PO PRN (21:11)
[2024-11-08 22:08] LABS: Glucose,Whole Blood 109 mg/dL (70-110)
[2024-11-09 06:37] VITALS: TEMP 97.8
[2024-11-09 07:56] LABS: Basophils % (A) 0 %; Eosinophils # (A) 0.3 k/uL (0-0.7); Eosinophils % (A) 4 %; HGB 13.3 gm/dL (11.4-16.0); Lymphocytes % (A) 12 %; MCH 33.4 pg (25.0-35.0); MCHC 33.3 g/dL (31.0-37.0); MCV 100.4 fL (80.0-100.0); Mean Platelet Volume 7.7; Monocytes # (A) 0.5 k/uL (0-1.0); Monocytes % (A) 7 %; Neutrophils % (A) 76 %; Platelet Count 274 k/uL (150-450); RBC 3.98 m/uL (3.80-5.40); RDW 13.5 % (11.5-15.5); WBC 7.8 k/uL (3.8-10.6)
[2024-11-09 08:04] LABS: African American GFR (CKD) 89 (>60 ml/min/1.73 sqM); Anion Gap 2 mmol/L; Blood Urea Nitrogen 16 mg/dL (7-17); Carbon Dioxide 30 mmol/L (22-30); Chloride 103 mmol/L (98-107); Glucose 101 mg/dL (74-99); Non-African American GFR(CKD) 77 (>60 ml/min/1.73 sqM); Potassium 4.4 mmol/L (3.5-5.1); Sodium 135 mmol/L (137-145)
--- NOTE | 2024-11-09 10:17 | P.PN ---
Subjective Progress Note Date: 11/09/24 Principal diagnosis: Right pubic ramii fractures Patient is seen at bedside today sitting up comfortably in chair. We were consulted for her right pubic ramii fractures. She is improved overall today. She has been ambulating with walker. Her pain is controlled. She denies new com plaints including numbness or calf pain. Objective - Vital Signs Vital signs: Vital Signs Temp 97.8 F 11/09/24 03:47 Pulse 96 11/09/24 03:47 Resp 18 11/09/24 03:47 BP 148/89 11/09/24 03:47 Pulse Ox 98 11/09/24 03:47 FiO2 Intake & Output 11/08/24 11/09/24 11/09/24 18:59 06:59 18:59 Intake Total 100 Balance 100 Weight 55 kg Intake: Oral 100 Other: Voiding Method External Catheter # Voids 450 - Exam No change in exam. She has minimal to no pain with AROM of both hips and lower extremities. Motor and sensation is intact throughout bilateral LE. Calves are SNT. distal pulses are 2+ and less than 2 sec cap refill present - Constitutional General appearance: Present: no acute distress - Labs CBC & Chem 7: 11/09/24 07:38 11/09/24 07:38 Labs: Abnormal Lab Results - Last 24 Hours (Table) 11/09/24 11/09/24 Range/Units 07:38 07:38 MCV 100.4 H (80.0-100.0) fL Sodium 135 L (137-145) mmol/L Glucose 101 H (74-99) mg/dL Microbiology - Last 24 Hours (Table) 11/07/24 14:55 Urine Culture - Final Urine,Clean Catch Assessment and Plan (1) Pubic ramus fracture Narrative/Plan: Recommend continue partial weight bearing as tolerated with walker at all times, PT, pain management. We will sign off for now and she can follow up as an outpatient in office. Thank you Current Visit: Yes Status: Acute Priority: Medium Code(s): S32.599A - OTH FRACTURE OF UNSP PUBIS, INIT ENCNTR FOR CLOSED FRACTURE SNOMED Code(s): 0567429113 Time with Patient: Less than 30
--- NOTE | 2024-11-09 10:35 | CA ---
Transthoracic Echo Report Name: Leena Mendoza Age: 79 Gender: F : 1945 Exam Date: 11/08/2024 11:30 Exam Location: [facility] Ht (in): 70 Wt (lb): 121 Ordering Physician: Gi Napier MD Attending/Referring Phys: Outside Sales Representative Insurance Jessica Mitchell RDCS Procedure CPT: Indications: Slurred speech, CVA Cardiac Hx: Technical Quality: Good Contrast 1: Total Dose (mL): Contrast 2: Total Dose (mL): MEASUREMENTS (Male / Female) Normal Values 2D ECHO LV Diastolic Diameter PLAX 4.6 cm 4.2 - 5.9 / 3.9 - 5.3 cm LV Systolic Diameter PLAX 3.2 cm IVS Diastolic Thickness 1.1 cm 0.6 - 1.0 / 0.6 - 0.9 cm LVPW Diastolic Thickness 1.0 cm 0.6 - 1.0 / 0.6 - 0.9 cm LV Relative Wall Thickness 0.5 LVOT Diameter 2.0 cm LV Diastolic Volume MOD BP 76.8 cm??? 67 - 155 / 56 - 104 cm??? LV Systolic Volume MOD BP 34.0 cm??? 22 - 58 / 19 - 49 cm??? LV Ejection Fraction MOD BP 55.7 % >= 55 % LV Cardiac Index MOD BP 2098.8 cm???/min???m??? LV Diastolic Volume MOD 4C 73.5 cm??? LV Systolic Volume MOD 4C 32.1 cm??? LV Ejection Fraction MOD 4C 56.3 % LV Cardiac Index MOD 4C 2033.0 cm???/min???m??? LV Diastolic Length 4C 7.0 cm LV Systolic Length 4C 5.9 cm LV Diastolic Volume MOD 2C 79.2 cm??? LV Systolic Volume MOD 2C 35.8 cm??? LV Ejection Fraction MOD 2C 54.8 % LV Cardiac Index MOD 2C 2129.8 cm???/min???m??? LV Diastolic Length 2C 6.9 cm LV Systolic Length 2C 6.2 cm LA Volume 89.1 cm??? 18 - 58 / 22 - 52 cm??? LA Volume Index 54.7 cm???/m??? 16 - 28 cm???/m??? Ascending Aorta Diameter 3.5 cm DOPPLER AV Peak Velocity 102.4 cm/s AV Peak Gradient 4.2 mmHg AV Mean Velocity 74.9 cm/s AV Mean Gradient 2.5 mmHg AV Velocity Time Integral 20.8 cm LVOT Peak Velocity 80.2 cm/s LVOT Peak Gradient 2.6 mmHg LVOT Velocity Time Integral 16.5 cm LVOT Stroke Volume 53.9 cm??? LVOT Stroke Volume Index 32.0 ml/m??? LVOT Cardiac Index 2644.8 cm???/min???m??? AV Area Cont Eq vti 2.6 cm??? AV Area Cont Eq pk 2.6 cm??? TR Peak Velocity 284.0 cm/s TR Peak Gradient 32.3 mmHg Right Atrial Pressure 5.0 mmHg Pulmonary Artery Systolic Pressu 37.3 mmHg Right Ventricular Systolic Press 37.3 mmHg PV Peak Velocity 58.9 cm/s PV Peak Gradient 1.4 mmHg FINDINGS Left Ventricle Left ventricular ejection fraction is estimated at 55-60 %. Mildly increased septal wall thickness. Mildly increased posterior wall thickness. Left ventricular cavity size normal. No obvious regional wall motion abnormalities. Right Ventricle Normal right ventricular size with mildly reduced function. Mild pulmonary hypertension. Right Atrium Severe right atrial dilatation. Left Atrium Severely increased left atrial volume. Mildly increased left atrial area. Mitral Valve Mitral valve thickened. No evidence for mitral valve prolapse. No mitral stenosis. [id number] mitral regurgitation. Aortic Valve Trileaflet aortic valve. Aortic valve sclerosis. No aortic stenosis. Mild aortic regurgitation. Tricuspid Valve Structurally normal tricuspid valve. No tricuspid stenosis. Moderate tricuspid regurgitation. Pulmonic Valve Structurally normal pulmonic valve. No pulmonic stenosis. Trace pulmonic regurgitation. Pericardium No pericardial effusion. Aorta Normal size aortic root and proximal ascending aorta. CONCLUSIONS Normal LV size with preserved systolic function mild concentric LVH right atrium is enlarged is significantly left atrium moderately. Mild to moderate mitral and tricuspid regurgitation. Tricuspid regurgitation seems moderate. Right-sided pressures are not very well quantified. No pericardial effusion Previewed by: Dr. Alen Gimenez MD (Electronically Signed) Final Date: 09 November 2024 10:34
--- NOTE | 2024-11-09 11:53 | P.DS ---
Providers Date of admission: 11/07/24 17:49 Expected date of discharge: 11/09/24 Attending physician: Darin Weldon MD Consults: 11/07/24 20:37 Consult Physician Urgent Consulting Provider: [facility] Consult Reason/Comments: New onset A-fib Do you want consulting provider notified?: Yes 11/08/24 01:05 Consult Physician Routine Consulting Provider: Antonio Kelly Consult Reason/Comments: pelvic fracture Do you want consulting provider notified?: Yes, Notify in am Primary care physician: Stated None Hospital Course: Hospital Course: Patient is a 79 year old female with no significant past medical history presented to the ED with altered mental status after a fall. EKG independently interpreted as atrial fibrillation, poor R wave progression, rate 92 bpm, QTc 434 ms Chest x-ray shows no acute cardiopulmonary disease/process. COPD changes. Pelvis x-ray shows right superior and inferior pubic ramus fracture with femur appearing intact, multilevel degeneration changes of spine with the left hip intact and remainder of pelvis appears intact on radiography Head/cervical spine CT shows no acute intracranial process, nonspecific white matter changes likely secondary to chronic small vessel ischemic disease, no evidence of cervical spine fracture, moderate multilevel degenerative disc disease Labs on admission show WBC 14.2, sodium 136, potassium 3.4, ALP 166, APTT 21.9, troponin I 0.015 Patient was admitted for evaluation of acute encephalopathy and pelvic fracture and new onset atrial fibrillation. Orthopedic surgery consulted, PT OT consulted, cardiology consulted, echocardiogram ordered, TSH, lipid panel, A1c checked, placed on fall precautions and cardiac monitoring, calcium and vitamin D supplemented, pain control provided with ketorolac, STERILE PROCESSING MANAGER consulted, and patient placed on n.p.o. initially. Initial urinalysis showed cloudy appearance with large leukocyte esterase and squamous epithelial cells and urine culture reflex ordered. Urine culture was negative. Orthopedic surgery reported no need for surgical intervention and recommended outpatient rehab. TSH, lipid profile, and A1c were at normal levels. PT OT recommended rolling walker for ambulation. STERILE PROCESSING MANAGER recommended patient would benefit from further skilled treatment outpatient. Echocardiogram showed ejection fraction 55 to 60% with no wall motion abnorm alities and normal cavity size with mild to moderate mitral and tricuspid regurgitation. Patient experienced hypertensive urgency during hospital stay and was provided blood pressure control with labetalol, hydralazine. Also provided hydroxyzine as needed to decrease anxiety. Patient also had hypokalemia and was repleted appropriately. Patient symptoms improved throughout patient's stay. Patient is cleared for discharge today and prescribed calcium and vitamin supplements, Tylenol Extra Strength, valsartan, and Eliquis. Aspirin was discontinued. Advised to follow-up with reclamation worker, PCP, Ortho surgery on outpatient basis and to ambulate with walker as tolerated. Final Diagnosis: #. Acute encephalopathy, delirium versus metabolic, resolved #. Pelvic fracture, secondary to fall from standing height, suspected osteoporosis #. Elevated alkaline phosphatase, secondary to pelvic fracture, stable #. Atrial fibrillation, controlled ventricular rate, new onset #. Hypertension #. Hypokalemia, resolved Physical examination: Vital signs reviewed General: non toxic, no distress Derm: no unusual rashes/lesions, warm Head: atraumatic, normocephalic, symmetric Eyes: EOMI, anicteric sclera, pupils equal round reactive to light ENT: Nose and ears atraumatic Neck: No cervical lymphadenopathy, trachea midline, supple Mouth: no lip lesion, mucus membranes moist Cardiovascular: S1S2 reg, no murmur Lungs: CTA bilateral, no rhonchi, no rales, no accessory muscle use Abdominal: soft, nondistended, nontender to palpation, no guarding Ext: muscle strength 5 out of 5 in all 4 extremities grossly, no gross muscle atrophy, no contractures, positive dorsalis pedis pulse bilateral, no edema Neuro: Alert and Oriented x 3, strength 5/5 bilateral proximal and distal upper and lower extremities, range of motion limited due to mild pain from the fracture Psych: Alert, oriented, appropriate affect and mood A total of 33 minutes of time were spent preparing this complex discharge summary. Patient was discharged on 11/09/2024 at 1129. I have seen and evaluated the patient today. Discussed with the resident and agree with the residents finding and plan as documented in the resident's note. Changes highlighted in blue font. Patient Condition at Discharge: Stable Plan - Discharge Summary Discharge Rx Participant: No New Discharge Prescriptions: New Calcium Carb-Vit D 500Mg-5Mcg [Oscal 500+D 5 Mcg (200 Iu)] 1 each PO BID- W/MEALS #90 tab Acetaminophen [Tylenol Extra Strength] 500 mg PO Q4HR PRN #90 tablet PRN Reason: Pain Valsartan [Diovan] 160 mg PO BID #120 tab Apixaban [Eliquis] 5 mg PO BID #90 tab Continue Prevagen 1 tab PO DAILY Discontinued Aspirin EC [Ecotrin Low Dose] 81 mg PO DAILY Discharge Medication List Prevagen 1 tab PO DAILY 11/07/24 [History] Acetaminophen [Tylenol Extra Strength] 500 mg PO Q4HR PRN #90 tablet 11/09/24 [Rx] Apixaban [Eliquis] 5 mg PO BID #90 tab 11/09/24 [Rx] Calcium Carb-Vit D 500Mg-5Mcg [Oscal 500+D 5 Mcg (200 Iu)] 1 each PO BID-W/MEALS #90 tab 11/09/24 [Rx] Valsartan [Diovan] 160 mg PO BID #120 tab 11/09/24 [Rx] Follow up Appointment(s)/Referral(s): Carlos Ponce PAC [PHYSICIAN BROILER SUPERVISOR] - 10 Days Wilber Vasquez MD [STAFF PHYSICIAN] - 2 Weeks [facility] [NON-STAFF] - 1 Week Tino Velarde MD [STAFF PHYSICIAN] - 10 Days Patient Instructions/Handouts: A-fib (Atrial Fibrillation) (DC), Pelvic Fracture (DC), Chronic Hypertension (DC) Activity/Diet/Wound Care/Special Instructions: Partial weightbearing as tolerated with walker Discharge/Stand Alone Forms: Area PCPs Discharge Disposition: HOME WITH HOME HEALTH SERVICES
--- NOTE | 2024-11-09 12:47 | P.PN ---
Subjective HISTORY OF PRESENT ILLNESS: This is a 79-year-old female with no significant past medical history. Patient does not follow with a journeyman meat cutter. We have been asked to see the patient in consultation for new onset atrial fibrillation. Patient examined at the bedside in the emergency room. Patients family member is at the bedside. Patient darleen rincon had a fall about 2 weeks. It is unknown if this was a mechanical fall or a syncopal episode. Apparently patient's friend came to check on her yesterday and she was found on the floor. She was conscious at the time but unknown for how long she laid on the floor. Apparently she has been having some issues with her balance recently per the family member. He also reports that she has had some issues with her speech at baseline and finding the right words but is not confused at baseline. The patient was found to be in A-fib with controlled ventricular rates. The patient denies a known history of atrial fibrillation. Additionally patient's blood pressures were found to be elevated with systolics between [id number]. DIAGNOSTICS: - EKG reveals atrial fibrillation with controlled ventricular rate - Chest xray negative for acute process. COPD changes. - Pelvis x-ray right superior and inferior pubic ramus fracture. Femur appears intact. - Laboratory data: WBC 14.2. Hemoglobin 13.7. Platelet count 299. Sodium 136. Potassium 3.4. BUN 16. Creatinine 0.66. Troponin negative x 1. TSH 2.710 - Current home cardiac medications include aspirin 81 mg daily - No previous echocardiogram, stress test, or cardiac catheterization available in EMR for review 11/09/2024 Patient examined this morning at the bedside. Patient currently denies chest pain or pressure. She denies shortness of breath. Echocardiogram completed revealing ejection fraction 55 to 60% with mild to moderate mitral and tricuspid regurgitation. Mild concentric LVH. Blood pressures remain elevated with a re ading of 148/89. PHYSICAL EXAM: VITAL SIGNS: Reviewed. GENERAL: Well-developed in no acute distress. HEENT: Head is normocephalic. Pupils are equal, round. Sclerae anicteric. Mucous membranes of the mouth are moist. Neck supple. No JVD or thyromegaly LUNGS: Respirations even and unlabored. Lungs essentially clear to auscultation bilaterally. HEART: Irregular rate and rhythm. S1 and S2 heard. ABDOMEN: Soft. Nondistended. Nontender. EXTREMITIES: Normal range of motion. No clubbing or cyanosis. Peripheral pulses intact. No lower extremity edema NEUROLOGIC: Awake and alert. ASSESSMENT: Status post fall x 2 Right superior and inferior pubic ramus fracture Atrial fibrillation with controlled ventricular rate, duration unknown Hypertensive urgency Altered mental status PLAN: Continue current cardiac medications Increase valsartan to 160 mg twice a day. Given additional 80 mg this morning. Continue to monitor blood pressure Further recommendations pending patient course Nurse practitioner note has been reviewed by physician. Signing provider agrees with the documented findings, assessment, and plan of care documented by CAN CONVEYOR FEEDER as a scribe. Objective - Vital Signs Vital signs: Vital Signs Temp 97.8 F 11/09/24 03:47 Pulse 96 11/09/24 03:47 Resp 18 11/09/24 03:47 BP 148/89 11/09/24 03:47 Pulse Ox 98 11/09/24 03:47 FiO2 Intake & Output 11/08/24 11/09/24 11/09/24 18:59 06:59 18:59 Intake Total 100 Balance 100 Weight 55 kg Intake: Oral 100 Other: Voiding Method External Catheter # Voids 450 - Labs CBC & Chem 7: 11/09/24 07:38 11/09/24 07:38 Labs: Abnormal Lab Results - Last 24 Hours (Table) 11/09/24 11/09/24 Range/Units 07:38 07:38 MCV 100.4 H (80.0-100.0) fL Sodium 135 L (137-145) mmol/L Glucose 101 H (74-99) mg/dL Microbiology - Last 24 Hours (Table) 11/07/24 14:55 Urine Culture - Final Urine,Clean Catch
[2024-11-09] MEDS: VALSARTAN 80 MG TAB PO STA (12:52)
[2024-11-09 13:08] VITALS: BP 134/73; PULSE 99; RESP 16
[2024-11-09 14:43] VITALS: BMI 17.4
[2024-11-09] MEDS ORDERED: VALSARTAN 160 MG TAB PO SCH (21:00)
== END 2024-11-09 17:38 | disposition home health service (06) ==
LOC: EC 14:15 → 4SSUR 17:49 → 3SCARD 20:59
PROVIDERS: ADMIT Family Medicine; ATTEND Family Medicine
DX: S32.591A Other specified fracture of right pubis, initial encounter for closed fracture (principal); W18.30XA Fall on same level, unspecified, initial encounter; G93.40 Encephalopathy, unspecified; R74.8 Abnormal levels of other serum enzymes; I48.91 Unspecified atrial fibrillation; I16.0 Hypertensive urgency; I10 Essential (primary) hypertension; E87.6 Hypokalemia; F03.90 Unspecified dementia, unspecified severity, without behavioral disturbance, psychotic disturbance, mood disturbance, and anxiety; F17.200 Nicotine dependence, unspecified, uncomplicated; Z79.82 Long term (current) use of aspirin; Z79.899 Other long term (current) drug therapy
CPT/HCPCS: 96376 ×3; 96374; 96375 ×2; 99285; 36415; 93005; 93306; 97162; 97166; 92523; 97129; 80061; 80053 ×2; 80048; 84443; 82550; 84484; 85025 ×2; 85027; 85610; 85730; 81001; 80306; 87086; 83036; 72170; 71046; 72125; 70450; G0378 ×4; J1885 ×3; J1920; J2470 ×2